=== PATIENT | male | born 1960 | race Asian ===

== ENCOUNTER 2016-11-22 11:31 | Emergency (ER) | payer OTHER ==
[~2016-11-22] VITALS: Ht 162.6 cm; Wt 96.0 kg
[2016-11-22 11:39] VITALS: BP 238/114; PULSE 89; RESP 16; O2SAT 98
[2016-11-22 13:10] LABS: BASOPHILS % (AUTO) 0.2 % (0-3); EOSINOPHILS % (AUTO) 4.2 % (0-5); MONOCYTES % (AUTO) 6.6 % (4-12); Mean Corpuscular Hemoglobin 29.5 pg (27.0-35.0); Mean Corpuscular Volume 83.7 fL (81-100); NEUTROPHILS % (AUTO) 67.5 % (40-74); Platelet Count 238 bil/L (150-400)
[2016-11-22 13:20] VITALS: BP 246/113; PULSE 48; RESP 16; O2SAT 100
[2016-11-22 13:39] LABS: TROPONIN T < 0.010 ug/L (0.0-0.011)
[2016-11-22 13:47] LABS: Magnesium 1.7 mg/dL (1.6-2.6)
--- NOTE | 2016-11-22 14:11 | ED.REPORT ---
HPI-General Illness Date of Service Nov 22, 2016 ED Provider: Rodney Sharp DO Patient is a 56 year old male with a history of hypertension who presents to the ED due to high blood pressure. He currently takes 50mg of Atenolol BID. The patient was going to have a dental procedure but was unable to due to his high blood pressure. He denies any symptoms at this time including headache, chest pain, shortness of breath, or dyspnea with exertion. Nursing Notes Stated Complaint: HIGH HEART RATE Chief Complaint: General Complaint Nursing Notes Reviewed: Yes Allergies: Coded Allergies: No Known Allergies (Unverified , 11/22/16) Scheduled Amlodipine (Amlodipine) 5 Mg Tablet 5 MG PO DAILY General Time Seen by MD: 14:10 Chief Complaint Other (hypertension) Hx Obtained From: Patient Arrived By: Walk-in Sudden in Onset?: No Symptom Duration: Since onset Severity: Current: No pain currently Recent Healthcare: Recent doctor visit Past Medical History Past Medical History Reports: Hypertension Smoking History Unknown if Ever Smoker Social History work on a ship Ambulatory Status Independent Review of Systems Full Review of Systems Constitutional: Denies: Chills, Fever Respiratory: Denies: Non-productive cough, Shortness of breath Cardiovascular: Denies: Chest pain, Dyspnea on exertion GI: Denies: Nausea Neurologic: Denies: Headache, Lightheaded Complete sys rev & neg: except as marked. Physical Exam Vital Signs Vital Signs Date Time Temp Pulse Resp B/P Pulse Ox O2 Delivery O2 Flow Rate FiO2 11/22/16 14:59 36.4 57 16 220/87 100 Room Air 11/22/16 14:56 36.4 57 16 220/87 100 Room Air 11/22/16 14:19 57 19 241/88 100 Room Air 11/22/16 13:20 48 16 246/113 100 11/22/16 11:39 36.5 89 16 238/114 98 Room Air Initial VS: Reviewed General/Constitutional: Awake, Alert, No acute distress Head / Eyes: Atraumatic, Normocephalic Respiratory / Chest: Atraumatic, Breath sounds NL, Breath sounds = bilat, No respiratory distress Cardiovascular: Heart rate NL, Regular rhythm, Heart sounds NL Upper Extremities Upper Extremity / MS: Atraumatic, Full range of motion Lower Extremity / Pelvis / MS: Atraumatic, Full range of motion Skin: Atraumatic, Color NL, No rash, Warm, Dry Neurologic: Oriented X3, Speech NL Interpretation & Diagnostics Lab Results Interpretation Result Diagram: 11/22/16 1300 11/22/16 1300 Test 11/22/16 13:00 11/22/16 14:29 White Blood Count 8.3th/mm3 (3.8-10.1) Red Blood Count 4.98mil/mm3 (4.40-5.80) Hemoglobin 14.7g/dL (13.8-17.2) Hematocrit 41.7% (41.0-50.0) Mean Corpuscular Volume 83.7fL (81-100) Mean Corpuscular Hemoglobin 29.5pg (27.0-35.0) Mean Corpuscular Hemoglobin Concent 35.3% (32.0-37.0) Red Cell Distribution Width 12.8% (12.3-15.4) Platelet Count 238bil/L (150-400) Neutrophils (%) (Auto) 67.5% (40-74) Lymphocytes (%) (Auto) 21.0% (14-46) Monocytes (%) (Auto) 6.6% (4-12) Eosinophils (%) (Auto) 4.2% (0-5) Basophils (%) (Auto) 0.2% (0-3) Sodium Level 140mEq/L (134-144) Potassium Level 4.1mEq/L (3.5-5.2) Chloride Level 101mEq/L (97-108) Carbon Dioxide Level 25mmol/L (18-29) Blood Urea Nitrogen 12mg/dL (6-24) Creatinine 0.88mg/dL (0.76-1.27) Estimat Glomerular Filtration Rate 95mL/min (>59) Glucose Level 123mg/dL (60-99) Calcium Level 9.5mg/dL (8.5-10.1) Magnesium Level 1.7mg/dL (1.6-2.6) Total Bilirubin 0.6mg/dL (0.0-1.2) Aspartate Amino Transf (AST/SGOT) 37U/L (0-50) Alanine Aminotransferase (ALT/SGPT) 36U/L (0-44) Alkaline Phosphatase 68U/L (25-150) Troponin T < 0.010ug/L (0.0-0.011) Pro-B-Type Natriuretic Peptide 388.9pg/mL (0-210) Total Protein 7.9g/dL (6.4-8.4) Albumin 4.8g/dL (3.4-5.0) Hold [place] Top Tube Received (Received) Hold Urine Received (Received) Re-Eval/Medical Decision Med Decision/Clinical Course Hypertension without signs of an organ damage or particular symptoms. We'll add amlodipine. Recommend ongoing monitoring and close outpatient follow-up. Time of Eval: 14:29 Re-Evaluation/Progress Note: Discussed results and plan for discharge. Patient understands and agrees to plan. All questions were addressed. Counseled Regarding: Diagnosis, Lab results, Need for follow-up, When/why to return to ED Discharge & Departure Primary Impression: Hypertension Hypertension type: unspecified secondary hypertension Qualified Code: I15.9 - Secondary hypertension, unspecified Disposition: AGAINST MEDICAL ADVICE Discharge Condition All VS Reviewed: Yes Condition: Stable Patient Instructions: Hypertension (ED) Additional Instructions: Your blood pressure was high today. Your labs were normal and reassuring though. Continue to take your Atenolol as prescribed. Take 1 Amlodipine daily. Follow up with a doctor as soon as you are [place] land again. Return to the emergency department if you develop any new or concerning symptoms. Referrals: NOPCP (PCP) Chad[facility] Attestation Portions of this note were transcribed by Zoila Monge. I, Dr. Milan Cedillo personally performed the history, physical exam and medical decision-making; I reviewed and confirmed the accuracy of the information in the transcribed note. Signed by: Essie Richard, 11/22/16 Rodney Sharp DO Nov 22, 2016 14:11 Liz Monge Nov 22, 2016 14:16
[2016-11-22] MEDS ORDERED: cloNIDine 0.1 mg Tablet PO ONE (14:15)
[2016-11-22 14:19] VITALS: BP 241/88; PULSE 57; RESP 19; O2SAT 100
[2016-11-22] MEDS ORDERED: AMLO5TAB2 PO (14:26)
[2016-11-22 14:56] VITALS: BP 220/87; PULSE 57; RESP 16; O2SAT 100
[2016-11-22 14:59] VITALS: BP 220/87; PULSE 57; RESP 16; O2SAT 100
== END 2016-11-22 15:00 | disposition home or self-care (01) ==
LOC: SED 11:31
DX: I15.9 Secondary hypertension, unspecified (principal); Z53.29 Procedure and treatment not carried out because of patient's decision for other reasons